=== PATIENT | female | born 1950 | race Asian ===

== ENCOUNTER 2017-01-19 10:01 | Inpatient (IN) | payer OTHER ==
[~2017-01-19] VITALS: Ht 160 cm; Wt 62.6 kg
[2017-01-19 10:41] LABS: BASOPHIL % 0.5 % (0-2); PLATELET COUNT 215 x10^3mcL (130-400); RED CELL DISTRIBUTION WIDTH 12.1 % (11.5-14.5)
[2017-01-19 11:05] LABS: ALBUMIN 3.8 g/dL (3.4-5.0); ALKALINE PHOSPHATASE 60 U/L (46-116); ALT/SGPT 21 U/L (14-59); AST/SGOT 28 U/L (15-37); BILIRUBIN TOTAL 0.25 mg/dL (0.20-1.00); CALCIUM 8.5 mg/dL (8.5-10.1); CARBON DIOXIDE 28.5 mmol/L (21-32); CHLORIDE SERUM 104 mmol/L (98-107); CHOLESTEROL 143 mg/dL (<200); CHOLESTEROL/HDL RATIO 2.8; CREATININE SERUM 0.9 mg/dL (0.6-1.0); GFR1 > 60 mL/min; GLUCOSE SERUM 134 mg/dL (74-106); HDL CHOLESTEROL 52 mg/dL (40-60); LIPASE 91 IU/L (73-393); POTASSIUM SERUM 3.6 mmol/L (3.5-5.1); SODIUM SERUM 139 mmol/L (136-145); TOTAL PROTEIN, SERUM 7.9 g/dL (6.4-8.2); TRIGLYCERIDES 79 mg/dL (<150)
[2017-01-19 11:11] LABS: FREE T4 0.99 ng/dL (0.76-1.46); FREE THYROXINE INDEX 2.4 ug/dL (1.4-4.5); T4(THYROXINE) 7.3 ug/dL (4.7-13.3)
[2017-01-19 11:52] LABS: T3 TOTAL 0.91 ng/mL
[2017-01-19] MEDS ORDERED: CALCIUM LACTAT650 M1 PO (11:52)
[2017-01-19] MEDS ORDERED: GEMFIBROZIL600 MG PO (11:53)
[2017-01-19] MEDS ORDERED: PRAVASTATIN SOD40 M1 PO ×2 (11:53→13:00)
[2017-01-19] MEDS ORDERED: [UNRECOGNIZED DRUG - CODE] PO (12:59)
[2017-01-19] MEDS ORDERED: LOP600 PO (13:00)
[2017-01-19 13:44] LABS: MAGNESIUM 2.1 mg/dL (1.8-2.4); PHOSPHOROUS 3.9 mg/dL (2.5-4.9)
[2017-01-19 14:11] VITALS: Ht 160 cm; Wt 62.6 kg
[2017-01-19 16:48] VITALS: BP 144/57
[2017-01-19 16:55] LABS: microscopic required? NO
[2017-01-19 17:05] LABS: urine erythrocyte NEGATIVE (NEGATIVE)
[2017-01-19 17:13] LABS: AMPHETAMINE QUAL UR NONE DETECTED (NEG <=1000)
[2017-01-19 19:50] VITALS: BP 125/69
[2017-01-19 21:06] VITALS: BP 132/71
[2017-01-20 05:57] VITALS: BP 140/77
[2017-01-20 06:53] LABS: BASOPHIL % 0.3 % (0-2); PLATELET COUNT 206 x10^3mcL (130-400); RED CELL DISTRIBUTION WIDTH 12.2 % (11.5-14.5)
[2017-01-20 06:57] LABS: CALCIUM 7.8 mg/dL (8.5-10.1); CARBON DIOXIDE 26.6 mmol/L (21-32); CHLORIDE SERUM 109 mmol/L (98-107); CREATININE SERUM 0.6 mg/dL (0.6-1.0); GFR1 > 60 mL/min; GLUCOSE SERUM 91 mg/dL (74-106); POTASSIUM SERUM 3.9 mmol/L (3.5-5.1); SODIUM SERUM 143 mmol/L (136-145)
[2017-01-20 08:00] VITALS: BP 119/65
[2017-01-20 10:30] VITALS: BP 136/77
[2017-01-20 18:39] VITALS: BP 117/66
[2017-01-20 21:48] VITALS: BP 117/48
[2017-01-21 06:08] VITALS: BP 136/73
[2017-01-21 06:17] LABS: BASOPHIL % 0.4 % (0-2); PLATELET COUNT 197 x10^3mcL (130-400); RED CELL DISTRIBUTION WIDTH 11.9 % (11.5-14.5)
[2017-01-21 07:45] VITALS: BP 97/50
[2017-01-21 14:25] VITALS: BP 123/63
[2017-01-21 18:34] VITALS: BP 126/85
[2017-01-21 21:10] VITALS: BP 124/68
[2017-01-22 04:42] VITALS: BP 117/68
[2017-01-22 10:26] VITALS: BP 155/60
[2017-01-22 12:47] VITALS: BP 155/60
[2017-01-22] MEDS ORDERED: THERA TABS1 TAB PO (13:05)
[2017-01-22] MEDS ORDERED: BACO TOP (13:05)
[2017-01-22] MEDS ORDERED: ECO81 PO (13:05)
[2017-01-22] MEDS ORDERED: HIBICLENS118 ML TOP (13:05)
[2017-01-22] MEDS ORDERED: COUMADIN2.5 MG PO (13:06)
[2017-01-22 13:48] VITALS: BP 138/66
== END 2017-01-22 14:06 | disposition home or self-care (01) | DRG 48 ==
LOC: ED 10:01 → DU 12:49
PROVIDERS: Family Medicine; Specialist; ADMIT Student in an Organized Health Care Education/Training Program
DX: G90.8 Other disorders of autonomic nervous system (principal); I95.9 Hypotension, unspecified; I82.412 Acute embolism and thrombosis of left femoral vein; D64.9 Anemia, unspecified; Z68.24 Body mass index [BMI] 24.0-24.9, adult; Z95.810 Presence of automatic (implantable) cardiac defibrillator; R00.1 Bradycardia, unspecified; E78.00 Pure hypercholesterolemia, unspecified; R73.03 Prediabetes
CPT/HCPCS: 82962; 83880; 84439; 97110-GP; 97116-GP; 97530-GP; J1644; J7030; Q0092